=== PATIENT | male | born 1960 | race Caucasian/White ===

== ENCOUNTER 2021-11-23 18:22 | Observation (INO) | payer SELFPAY ==
[2021-11-23 19:58] VITALS: BMI 41.8
[2021-11-23] MEDS ORDERED: hydrALAZINE 20 MG/ML VIAL SLOW IVP PRN (21:08)
[2021-11-23] MEDS ORDERED: Ondansetron PF 4 MG/2 ML Vial IVP PRN (21:09)
[2021-11-23] MEDS: Nicotine 21 MG PATCH TD SCH (21:24)
[2021-11-23 21:41] LABS: Troponin I Less than 0.010 ng/mL (< 0.028)
[2021-11-23 21:52] LABS: Anion Gap 16 mmol/L (10-20); BUN (Urea Nitrogen) 17 mg/dL (8.4-25.7); Calc. Creatinine Clearance 160 mL/min (70-130); Calcium 8.6 mg/dL (7.8-10.44); Carbon Dioxide 24 mmol/L (22-29); Chloride 106 mmol/L (98-107); Glucose 135 mg/dL (70-105); Potassium 3.5 mmol/L (3.5-5.1); Sodium 142 mmol/L (136-145)
[2021-11-24 05:15] LABS: #Eosinphils 0.3 thou/uL (0.0-0.7); #Lymphocytes 2.5 thou/uL (1.20-3.40); #Monocytes 0.9 thou/uL (0.11-0.59); #Neutrophils 3.7 thou/uL (1.40-6.50); %Basophils 0.6 % (0.0-1.0); %Eosinophils 3.7 % (0.0-10.0); %Lymphocytes 33.7 % (21.0-51.0); %Monocytes 12.5 % (0.0-10.0); %Neutrophils 49.5 % (42.0-75.0); Mean Corpuscular HGB CONC 33.6 g/dL (32.0-36.0); Mean Corpuscular Hemoglobin 33.6 pg (27.0-31.0); Mean Platelet Volume 6.7 fL (7.4-10.4); Platelet Count 224 thou/uL (130-400); RBC Distribution Width 11.8 % (11.5-14.5); Red Blood Cell (RBC) Count 4.47 mill/uL (4.70-6.10); White Blood Cell (WBC) Count 7.4 thou/uL (4.8-10.8)
[2021-11-24 05:45] LABS: Troponin I Less than 0.010 ng/mL (< 0.028)
[2021-11-24 06:16] LABS: Anion Gap 12 mmol/L (10-20); BUN (Urea Nitrogen) 16 mg/dL (8.4-25.7); Calc. Creatinine Clearance 172 mL/min (70-130); Calcium 8.4 mg/dL (7.8-10.44); Carbon Dioxide 25 mmol/L (22-29); Cardiac Risk 6.8 (Less than 4.5); Chloride 107 mmol/L (98-107); Cholesterol 197 mg/dl (< 200 Desired); Glucose 124 mg/dL (70-105); HDL Cholesterol 29 mg/dL (>60 Neg Risk); LDL Cholesterol, Calculated 121 mg/dL; Potassium 4.2 mmol/L (3.5-5.1); Sodium 140 mmol/L (136-145); Triglycerides 233 mg/dL (Less than 150)
[2021-11-24] MEDS ORDERED: Regadenoson 0.4 MG/5 ML SYRINGE ONE (10:02)
[2021-11-24] MEDS: Losartan 25 MG TAB PO SCH (11:20)
[2021-11-24] MEDS: Amlodipine 5 MG TAB PO SCH (11:20)
[2021-11-24] MEDS: Aspirin 325 mg Enteric Coated Tablet PO SCH (11:20)
[2021-11-24] MEDS: Enoxaparin Sodium 40 MG/0.4 ML SYRINGE SC SCH (11:22)
[2021-11-24] MEDS: Nicotine 21 MG PATCH TD SCH (20:44)
[2021-11-25] MEDS: Aspirin 325 mg Enteric Coated Tablet PO SCH (08:19)
[2021-11-25] MEDS: Losartan 25 MG TAB PO SCH (08:19)
[2021-11-25] MEDS: Amlodipine 5 MG TAB PO SCH (08:19)
[2021-11-25] MEDS: Enoxaparin Sodium 40 MG/0.4 ML SYRINGE SC SCH (08:20)
[2021-11-25 11:38] VITALS: BP 156/93; TEMP 98.2
== END 2021-11-25 11:45 | disposition home or self-care (01) ==
LOC: 2SW 19:25
PROVIDERS: ADMIT Internal Medicine; ATTEND Internal Medicine
DX: R07.9 Chest pain, unspecified (principal); I10 Essential (primary) hypertension; E78.5 Hyperlipidemia, unspecified; M79.89 Other specified soft tissue disorders; F17.290 Nicotine dependence, other tobacco product, uncomplicated; G47.33 Obstructive sleep apnea (adult) (pediatric); I08.1 Rheumatic disorders of both mitral and tricuspid valves; E66.9 Obesity, unspecified; Z68.41 Body mass index [BMI] 40.0-44.9, adult; Z79.899 Other long term (current) drug therapy; Z95.0 Presence of cardiac pacemaker
CPT/HCPCS: 36415; 78452; 80048; 80061; 84443; 84484; 85025; 93017; 93306; 96372; A9500; G0378; J1650; J2785

== ENCOUNTER 2023-05-20 10:42 | Outpatient (CLI) | payer OTHER | END 2023-05-20 10:43 | disposition home or self-care (01) | LOC: BICRAD 10:42 → RAD 10:43 | PROVIDERS: ATTEND Preventive Medicine Occupational Medicine | DX: M51.16 Intervertebral disc disorders with radiculopathy, lumbar region (principal); M47.26 Other spondylosis with radiculopathy, lumbar region | CPT/HCPCS: 72100 ==